=== PATIENT | male | born 1965 | race Caucasian/White ===

== ENCOUNTER 2020-12-05 02:54 | Day surgery (SDC) | payer BC, SELFPAY ==
[2020-11-25 09:52] VITALS: BMI 29.6
--- NOTE | 2020-12-05 10:05 | WPDANESEPPF ---
Anes - Initial Pre Proc Eval Procedure: Operation Date: 12/05/20 11:30 Proposed Procedures p Screening Colonoscopy - Poncho Garcia MD Date/Time: 12/05/20 10:05 Surgeon: Poncho Garcia MD Pre Op Diagnosis: neoplasm screening Patient Data Age: 55 Gender: M Height: 1.75 m Weight: 91 kg Allergies Allergy/AdvReac Type Severity Reaction Status Date / Time No Known Allergies Verified 12/05/20 10:56 Home Medications Medication Instructions Recorded Confirmed Type rosuvastatin 20 mg tablet 20 mg PO DAILY #90 tablet 07/11/20 11/25/20 Rx losartan 100 1 tablet PO DAILY #90 tablet 07/12/20 11/25/20 Rx mg-hydrochlorothiazide 12.5 mg tablet Patient hx anesthesia problems: none Family hx anesthesia problems: none PMFSH Past Medical History Medical History (Updated 12/05/20 @ 10:06 by Rell Agustin MD) Arthritis Benign reactive hypertension Elevated liver enzymes Mixed hyperlipidemia Family History Family History Father Hypertension Family history of malignant neoplasm of kidney, Onset Age: 69 Patient's father is Mother Family history of elevated blood lipids Social History Social History (Updated 07/10/20 @ 10:48 by Macarena Mcrae) Social History: Smoking status: Never smoker Second hand tobacco smoke exposure: No Alcohol intake: current Drinks per week: 7 Substance use: never Substance use type: does not use Living arrangements: with family Gender identity (if verbalized by the patient): Male Spiritual care concerns: No Anes - Eval Final PreProcedure Day of Procedure 12/05/20 10:05 Patient weight: overweight Heart: regular rate and rhythm Lungs: clear to auscultation and normal air movement Airway: Mallampati scale class II Neurological: alert and oriented Last oral intake: >/= 8 hours ASA classification: II Emergent: no Anesthetic plan: proceed Anesthesia type and monitoring: general GIVS Informed Consent: The patient's anesthetic plan and its attendant risks and benefits were discussed with the patient/family/POA. Questions were solicited and answers provided to the satisfaction of the patient/family/POA.
[2020-12-05 10:57] VITALS: BP 149/96; PULSE 89; RESP 18; TEMP 36.4; O2SAT 98; BMI 29.9
[2020-12-05] MEDS: LACTATED RINGERS 1,000 ML 150 ML IV CONT (11:01)
--- NOTE | 2020-12-05 11:31 | PM.HPGS ---
History of Present Illness History of Present Illness Consent: Risks, benefits, and alternatives have been discussed and questions answered. Patient agrees to proceed with procedure. Chief complaint: neoplasm screening Narrative: Willem Jang is a 55 year old male here for first screening colonoscopy Review of Systems Constitutional: Constitutional: Denies headache(s) and Denies weakness Eyes: Eyes: Denies blurry vision ENT: Reports Normal hearing present, Denies headache(s) and Denies neck pain Cardiovascular: Cardiovascular: Denies chest pain and Denies dyspnea Respiratory: Respiratory: Denies dyspnea Gastrointestinal: Gastrointestinal: Reports no additional gastrointestinal complaints Genitourinary: Genitourinary: Denies dysuria Musculoskeletal: Musculoskeletal: Denies neck pain Integumentary/Breasts: Skin/Breast: Denies dry skin Neurologic: Reports Normal hearing present, Denies headache(s) and Denies weakness Psychiatric: Psychiatric: Denies anxiety Endocrine: Endocrine: Denies change in body appearance Hematologic/Lymphatic: Hematologic/Lymphatic: Denies easy bleeding Allergic/Immunologic: Allergic/Immunologic: Denies urticaria PMFSH Past Medical History Medical History (Updated 12/05/20 @ 10:06 by Rell Agustin MD) Arthritis Benign reactive hypertension Elevated liver enzymes Mixed hyperlipidemia Family History Family History Father Hypertension Family history of malignant neoplasm of kidney, Onset Age: 69 Patient's father is Mother Family history of elevated blood lipids Social History Social History (Updated 07/10/20 @ 10:48 by Macarena Mcrae) Social History: Smoking status: Never smoker Second hand tobacco smoke exposure: No Alcohol intake: current Drinks per week: 7 Substance use: never Substance use type: does not use Living arrangements: with family Gender identity (if verbalized by the patient): Male Spiritual care concerns: No Meds Home Medications and Allergies Home Medications Medication Instructions Recorded Confirmed Type rosuvastatin 20 mg tablet 20 mg PO DAILY #90 tablet 07/11/20 11/25/20 Rx losartan 100 1 tablet PO DAILY #90 tablet 07/12/20 11/25/20 Rx mg-hydrochlorothiazide 12.5 mg tablet Allergies Allergy/AdvReac Type Severity Reaction Status Date / Time No Known Allergies Verified 12/05/20 10:56 Vital Signs Vital Signs - 24 hr 12/05/20 10:57 Temperature 97.5 F L Pulse Rate 89 Respiratory Rate 18 Blood Pressure 149/96 H Pulse Oximetry 98 Exam Const: General: comfortable and no acute distress HENMT: General nose exam: Normal nares present Eyes: General: appearance normal, both eyes and all related structures Neck: Neck: no JVD Resp: Auscultation: clear to auscultation bilaterally Cardio: Rate: regular rate Rhythm: regular rhythm GI: Inspection: non-distended GI Palp: Yes Soft to palpation Skin: General skin exam: normal color Neuro: General: gait normal Speech: normal speech Extrem: General: normal to inspection Psych: Mental Status: mental status grossly normal Assessment and Plan Assessment and plan (1) Colon cancer screening: Code(s): Z12.11 - Encounter for screening for malignant neoplasm of colon Status: Acute Assessment and Plan: colonoscopy
[2020-12-05 11:51] VITALS: BP 117/82; PULSE 78; RESP 13; O2SAT 95
[2020-12-05 12:01] VITALS: BP 120/95; PULSE 80; RESP 18; O2SAT 94
[2020-12-05 12:11] VITALS: BP 132/100; PULSE 64; RESP 16; O2SAT 98
== END 2020-12-05 12:22 | disposition home or self-care (01) ==
PROVIDERS: PCP Family Medicine; Visit Provider Internal Medicine Gastroenterology
PROC: 0DJD8ZZ Inspection of Lower Intestinal Tract, Via Natural or Artificial Opening Endoscopic (ICD-10-PCS; CPT 45378; principal; 2020-12-05 11:30)
DX: Z12.11 Encounter for screening for malignant neoplasm of colon (principal); D12.3 Benign neoplasm of transverse colon; D12.8 Benign neoplasm of rectum; K57.30 Diverticulosis of large intestine without perforation or abscess without bleeding; I10 Essential (primary) hypertension; E78.2 Mixed hyperlipidemia; R74.8 Abnormal levels of other serum enzymes
CPT/HCPCS: 45385; 88305; J2704; J7120

== ENCOUNTER 2022-04-29 09:17 | Outpatient (CLI) | payer BC, SELFPAY ==
--- NOTE | ~2022-04-29 | XR_ITS ---
Right foot Technique: AP, oblique, and lateral views were obtained. Clinical History: Osteoarthritis, pain Findings: No acute fracture or dislocation is seen. There is severe degenerative change at the first MTP joint, with a large dorsal loose body versus spur. Soft tissues are unremarkable. Impression: Severe osteoarthritis of the first MTP joint, with suspected large dorsal loose body versus very larg e spur. Reviewed, dictated and finalized at location M. ER CERTIFICATION MANAGER Impression: Severe osteoarthritis of the first MTP joint, with suspected large dorsal loose body versus very large spur.
== END 2022-04-29 09:18 | disposition home or self-care (01) ==
PROVIDERS: PCP Family Medicine; Visit Provider Family Medicine
DX: M19.071 Primary osteoarthritis, right ankle and foot (principal)
CPT/HCPCS: 73630

== ENCOUNTER 2025-03-15 00:48 | Day surgery (SDC) | payer BC, SELFPAY ==
[2025-03-04 11:24] VITALS: BMI 29.5
--- OUTSIDE RECORDS SUMMARY | 2025-03-15 00:52 | XMS_ITS | Clinical Summary ---
Author Organization [facility] Address [address] Eng: Epic Prelude ADT [place] [id number] Care Team Providers Care Map Colorer Name Role Phone Unavailable Primary Care Provider Unavailabl e Medications ezetimibe (ZETIA) 10 mg tablet Take 1 Tablet (10 mg) by mouth daily. 30 Tablet 3 09/17/2021 2:47 PM CDT 2 Active ezetimibe (ZETIA) 10 mg tablet Take 1 Tablet (10 mg) by mouth daily. 30 Tablet 3 10/24/2021 4:04 PM CDT 2 Active ezetimibe (ZETIA) 10 mg tablet Take 1 Tablet (10 mg) by mouth daily. 90 Tablet 1 11/30/2021 7:30 PM CDT 2 Active azelastine (ASTEPRO) 0.15 % (205.5 mcg) nasal spray 1 spray intranasally every day at bedtime administer into each nostril 30 mL 2 Active losartan-hydro CHLOROthiazide (HYZAAR) 100-12.5 mg tablet Take 1 Tablet by mouth daily. 90 Tablet 1 07/20/2022 11:10 AM CDT 2 Active ezetimibe (ZETIA) 10 mg tablet Take 1 Tablet (10 mg) by mouth daily. 90 Tablet 09/01/2022 12:58 PM CDT 3 Active losartan-hydro CHLOROthiazide (HYZAAR) 100-12.5 mg tablet Take 1 Tablet by mouth daily. 90 Tablet 1 05/25/2023 10:52 AM COMMUNICATIONS TOWER CLIMBER 4 Active azelastine (ASTELIN) 137 mcg/actuation nasal spray Administer 1 [place] in each nostril every 12 hours. 30 mL 08/29/2023 12:23 PM CDT 4 Active fluticasone propionate (FLONASE) 50 mcg/spray [place], Suspension nasal inhaler Administer 1 [place] in each nostril daily. 16 Gram 08/29/2023 12:23 PM CDT 4 Active eszopiclone (LUNESTA) 2 mg Tablet Take 1 Tablet (2 mg) by mouth daily. Take with you to sleep lab on the night of sleep study. 1 Tablet 4 Active ezetimibe (ZETIA) 10 mg tablet Take 1 Tablet (10 mg) by mouth daily. 90 Tablet 1 02/24/2024 10:16 AM CDT 4 Active tiZANidine (ZANAFLEX) 2 mg Tablet Take 1 Tablet (2 mg) by mouth 3 times daily as needed FOR MUSCLE SPASTICITY. 60 Tablet 06/06/2024 2:15 PM COMMUNICATIONS TOWER CLIMBER 5 Active fluticasone propionate (FLONASE) 50 mcg/spray [place], Suspension nasal inhaler ADMINISTER 1 SPRAY IN EACH NOSTRIL ONCE DAILY. 16 Gram 3 5 Active ezetimibe (ZETIA) 10 mg tablet Take 1 Tablet (10 mg) by mouth daily. 90 Tablet 1 03/04/2025 10:53 AM COMMUNICATIONS TOWER CLIMBER 5 Active losartan-hydro CHLOROthiazide (HYZAAR) 100-25 mg tablet Take 1 Tablet by mouth daily. 90 Tablet 1 03/04/2025 10:53 AM COMMUNICATIONS TOWER CLIMBER 5 Active rosuvastatin (CRESTOR) 20 mg tablet Take 1 Tablet (20 mg) by mouth daily. 90 Tablet 1 03/04/2025 10:53 AM COMMUNICATIONS TOWER CLIMBER 5 Active ezetimibe (ZETIA) 10 mg tablet Take 1 Tablet (10 mg) by mouth daily. 90 Tablet 1 12/03/2024 8:44 AM CDT 5 025 Discontin ued(Reord er) losartan-hydro CHLOROthiazide (HYZAAR) 100-25 mg tablet Take 1 Tablet by mouth daily. 90 Tablet 1 12/03/2024 8:44 AM CDT 5 025 Discontin ued(Reord er) rosuvastatin (CRESTOR) 20 mg tablet Take 1 Tablet (20 mg) by mouth daily. 90 Tablet 1 12/03/2024 8:44 AM CDT 5 025 Discontin ued(Reord er) Encounters Date Type Department Care Team Description 03/05/2025 External Device Data [facility]STRACTION Provider, Abstract 02/27/2025 External Device Data [facility] Provider, Abstract 02/26/2025 External Device Data [facility]STRACTION Provider, Abstract from Last 3 Months Social History Tobacco Use Types Packs/Day Years Used Date Smoking Tobacco: Never Assessed Sex and Gender Information Value Date Recorded Sex Assigned at Not on file Legal Sex Male 3:27 PM CDT Gender Identity Not on file Sexual Orientation Not on file Plan of Treatment Health Maintenance Due Date Last Done Comments DTAP/TDAP/TD VACCINES (1 - Tdap) 08/23/1986 HEPATITIS B VACCINES (1 of 3 - 19+ 3-dose series) 08/01 COLORECTAL SCREENING 08/23/2012 Colorectal Cancer Screening 08/23/2012 FIT-DNA Q 3 years 08/23/2012 FIT/FOBT Q 1 year 08/23/2012 Flex Sig/CT Colonography Q 5 years 08/23/2012 ZOSTER VACCINE (1 of 2) 08/23/2017 INFLUENZA VACCINE (#1) 2024 Insurance RX [facility] [employer] (INTERNAL) [facility]
[2025-03-15 11:09] VITALS: BP 154/93; PULSE 88; RESP 20; TEMP 36.4; O2SAT 100
[2025-03-15] MEDS: LACTATED RINGERS 1,000 ML 150 ML IV CONT (11:16)
--- NOTE | 2025-03-15 11:18 | PM.HPGS ---
History of Present Illness History of Present Illness Consent: Risks, benefits, and alternatives have been discussed and questions answered. Patient agrees to proceed with procedure. Chief complaint: Encounter for screening for malignant neoplasm of Narrative: Willem Jang is a 59 year old male with colon polyp in 2020 Review of Systems Review of Systems: All systems reviewed & are unremarkable except as noted in HPI and below PMFSH Past Medical History Medical History (Updated 03/15/25 @ 11:18 by Poncho Garcia MD) Adenomatous colon polyp RUQ pain Arthritis Elevated liver enzymes Mixed hyperlipidemia Benign reactive hypertension Family History Family History Father Hypertension Family history of malignant neoplasm of kidney, Onset Age: 69 Patient's father is Mother Family history of elevated blood lipids Social History Social History Social History: Smoking status: Never smoker Second hand tobacco smoke exposure: No Alcohol intake: current Drinks per week: 7 Substance use: never Substance use type: does not use Do You Feel Safe in your Home?: Yes Lack of Transportation: No Lack of Food: Never True Current Housing: I Have Housing Concerned About Future Housing: No Difficulty Paying Gas/Electric Bills: No Difficulty Paying for Meds: No Currently Unemployed: No Education: Don't Know Difficulty w/ Childcare or Family Care: No Living arrangements: with family Occupation/Education: occupation Gender identity (if verbalized by the patient): Male Sexual Orientation (if Verbalized by the Patient): Straight or Heterosexual Spiritual care concerns: No Meds Home Medications and Allergies Home Medications ?Medication ?Instructions ?Recorded ?Confirmed ?Type fluticasone propionate 50 See Rx Instructions .Route 08/28/24 03/15/25 Rx mcg/actuation nasal .COMPLEX #16 grams spray,suspension ezetimibe 10 mg tablet See Rx Instructions .Route 02/25/25 03/15/25 Rx .COMPLEX #90 tabs losartan 100 See Rx Instructions .Route 02/25/25 03/15/25 Rx mg-hydrochlorothiazide 25 mg tablet .COMPLEX #90 tabs rosuvastatin 20 mg tablet See Rx Instructions .Route 02/25/25 03/15/25 Rx .COMPLEX #90 tabs multivitamin (Daily Multi-Vitamin 1 tablet PO DAILY 03/04/25 03/15/25 History tablet) Allergies Allergy/AdvReac Type Severity Reaction Status Date / Time No Known Allergies Allergy Verified 03/15/25 11:08 Vital Signs Vital Signs - 24 hr 03/15/25 11:09 Temperature 97.5 F L Pulse Rate 88 Respiratory Rate 20 Blood Pressure 154/93 H Pulse Oximetry 100 Oxygen Delivery Room Air Exam Const: General: comfortable and no acute distress HENMT: Face/Nose/Sinus: Normal nares present Eyes: General: appearance normal, both eyes and all related structures Resp: Auscultation: clear to auscultation bilaterally Cardio: Rate: regular rate Rhythm: regular rhythm GI: Inspection: non-distended GI Palp: Yes Soft to palpation Skin: General skin exam: normal color Extrem: General: normal to inspection Psych: Mental Status: mental status grossly normal Assessment and Plan Assessment and plan (1) Adenomatous colon polyp: Code(s): D12.6 - Benign neoplasm of colon, unspecified Status: Acute Assessment and Plan: colonoscopy
--- NOTE | 2025-03-15 11:30 | WPDANESEPPF ---
Anes - Initial Pre Proc Eval Procedure: Operation Date: 03/15/25 12:30 Proposed Procedures p Screening Colonoscopy - Poncho Garcia MD Date/Time: 03/15/25 11:30 Surgeon: Poncho Garcia MD Pre Op Diagnosis: Encounter for screening for malignant neoplasm of Patient Data Age: 59 Gender: M Height: 1.75 m Weight: 89.8 kg Last Vital Signs Temp 36.4 C L 03/15/25 11:09 Pulse 88 03/15/25 11:09 Resp 20 03/15/25 11:09 BP 154/93 H 03/15/25 11:09 Pulse Ox 100 03/15/25 11:09 O2 Del Method Room Air 03/15/25 11:09 Allergies Allergy/AdvReac Type Severity Reaction Status Date / Time No Known Allergies Allergy Verified 03/15/25 11:08 Home Medications ?Medication ?Instructions ?Recorded ?Confirmed ?Type fluticasone propionate 50 See Rx Instructions .Route 08/28/24 03/15/25 Rx mcg/actuation nasal .COMPLEX #16 grams spray,suspension ezetimibe 10 mg tablet See Rx Instructions .Route 02/25/25 03/15/25 Rx .COMPLEX #90 tabs losartan 100 See Rx Instructions .Route 02/25/25 03/15/25 Rx mg-hydrochlorothiazide 25 mg tablet .COMPLEX #90 tabs rosuvastatin 20 mg tablet See Rx Instructions .Route 02/25/25 03/15/25 Rx .COMPLEX #90 tabs multivitamin (Daily Multi-Vitamin 1 tablet PO DAILY 03/04/25 03/15/25 History tablet) Patient hx anesthesia problems: none Family hx anesthesia problems: none Results Review: All pre-operative results and documents have been reviewed as part of the pre-operative evaluation. [facility] Past Medical History Medical History Adenomatous colon polyp RUQ pain Arthritis Elevated liver enzymes Mixed hyperlipidemia Benign reactive hypertension Family History Family History Father Hypertension Family history of malignant neoplasm of kidney, Onset Age: 69 Patient's father is Mother Family history of elevated blood lipids Social History Social History Social History: Smoking status: Never smoker Second hand tobacco smoke exposure: No Alcohol intake: current Drinks per week: 7 Substance use: never Substance use type: does not use Do You Feel Safe in your Home?: Yes Lack of Transportation: No Lack of Food: Never True Current Housing: I Have Housing Concerned About Future Housing: No Difficulty Paying Gas/Electric Bills: No Difficulty Paying for Meds: No Currently Unemployed: No Education: Don't Know Difficulty w/ Childcare or Family Care: No Living arrangements: with family Occupation/Education: occupation Gender identity (if verbalized by the patient): Male Sexual Orientation (if Verbalized by the Patient): Straight or Heterosexual Spiritual care concerns: No Anes - Eval Final PreProcedure Day of Procedure 03/15/25 11:30 Patient weight: overweight Heart: regular rate and rhythm Lungs: clear to auscultation Airway: Mallampati scale class II Neurological: alert and oriented Last oral intake: >/= 8 hours ASA classification: II Emergent: no Anesthetic plan: proceed Anesthesia type and monitoring: general GIVS and standard monitoring Results Review: All pre-operative results and documents have been reviewed as part of the pre-operative evaluation. Informed Consent: The patient's anesthetic plan and its attendant risks and benefits were discussed with the patient/family/POA. Questions were solicited and answers provided to the satisfaction of the patient/family/POA.
[2025-03-15 12:10] VITALS: BP 116/73; PULSE 83; RESP 30; O2SAT 97
[2025-03-15 12:20] VITALS: BP 105/73; PULSE 75; RESP 21; O2SAT 100
[2025-03-15 12:30] VITALS: BP 119/84; PULSE 74; RESP 22; O2SAT 99
== END 2025-03-15 12:39 | disposition home or self-care (01) ==
PROVIDERS: PCP Family Medicine; Referring Provider Physician Assistant; Visit Provider Internal Medicine Gastroenterology
PROC: 0DJD8ZZ Inspection of Lower Intestinal Tract, Via Natural or Artificial Opening Endoscopic (ICD-10-PCS; CPT 45378; principal; 2025-03-15 12:30)
DX: Z12.11 Encounter for screening for malignant neoplasm of colon (principal); K57.30 Diverticulosis of large intestine without perforation or abscess without bleeding; K64.8 Other hemorrhoids; Z86.0100 Personal history of colon polyps, unspecified
CPT/HCPCS: 45378; J2704; J7120